=== PATIENT | female | born 1955 | race Caucasian/White ===

== ENCOUNTER → 2018-11-24 | Outpatient (CLI) | payer BC ==
--- NOTE | 2018-11-24 08:20 | CT ---
EXAMINATION TYPE: CT chest w con DATE OF EXAM: 11/24/2018 COMPARISON: NONE HISTORY: Hilar adenopathy CT DLP: 349.1 mGycm. Automated Exposure Control for Dose Reduction was Utilized. TECHNIQUE: CT scan of the thorax is performed following with IV Contrast, patient injected with 100 mL of Isovue 300. FINDINGS: LUNGS: The lungs are grossly clear, there is no concerning parenchymal mass or nodule identified. T here is no pleural effusion or pneumothorax seen. Minimal bibasilar subsegmental atelectasis is appr eciated best on the coronal images. The tracheobronchial tree is patent. MEDIASTINUM: There are no greater than 1 cm hilar or mediastinal lymph nodes. There is no evidence of hilar adenopathy. Right hilar lymph node measures 7 mm in short axis, within normal limits and a sec ond right hilar lymph node measures 8 mm, also within normal limits. No sizable left hilar adenopathy . A precarinal lymph node is upper limits of normal size measuring 1.0 cm in short axis although cont ains a morphologically normal appearing fatty hilum. No pericardial effusion is seen. Very few [place] coronary artery calcifications are seen. There is a normal variant bovine aortic arch. Aortic ro ot is upper limits of normal measuring 3.9 cm although does not meet criteria for aneurysm. Ascending thoracic aorta measures 3.8 cm, also within normal limits. OTHER: The spleen is enlarged measuring 15.3 cm in longitudinal dimension. There is mild pancreatic p arenchymal atrophy present. There is partial visualization of bilateral cystic renal lesions measurin g up to 9.3 cm the left and 3.2 cm on the right. Small hiatal hernia is present. Low-attenuation of t he hepatic parenchyma suggests mild hepatic steatosis. Minimal multilevel degenerative change of the thoracic spine is noted. IMPRESSION: 1. No evidence of hilar adenopathy or suspicious mediastinal adenopathy. No suspicious pulmonary mass or nodule. 2. Upper limits of normal size of the aortic root measuring 3.9 cm. 3. Incidentally noted splenomegaly, partially visualized cystic renal lesions measuring up to 9.3 cm on the left, and findings suggesting mild hepatic steatosis.
== END | disposition home or self-care (01) ==
LOC: RADCTMAIN 07:02
PROVIDERS: ATTEND Internal Medicine Rheumatology
DX: R59.0 Localized enlarged lymph nodes (principal)
CPT/HCPCS: 71260; Q9967

== ENCOUNTER → 2019-11-11 | Outpatient (CLI) | payer BC ==
--- NOTE | 2019-11-11 11:57 | MM ---
Reason for exam: clinical finding. Last mammogram was performed 9 years and 1 month ago. History: Patient is postmenopausal. Family history of breast cancer in sister at age 67. Took estrogen beginning at age 50. Physical Findings: Nurse did not find any significant physical abnormalities on exam. MG Diagnostic Mammo w CAD JAMAAL Bilateral CC and MLO view(s) were taken. Prior study comparison: October 09, 2010, bilateral digital screening mammogram. March 31, 2009, mammogram, performed at [facility]. There are scattered fibroglandular densities. Finding: There is a 3 mm oval mass in the right breast, two subareolar, one right upper outer quadrant. These results were verbally communicated with the patient and result sheet given to the patient on 11/11/19. ASSESSMENT: Incomplete: need additional imaging evaluation, BI-RAD 0 RECOMMENDATION: Ultrasound of the right breast.
--- NOTE | 2019-11-11 12:00 | USB ---
Reason for exam: additional evaluation requested from abnormal screening. History: Patient is postmenopausal. Family history of breast cancer in sister at age 67. Took estrogen beginning at age 50. US Breast RT Right complete breast ultrasound includes all four quadrants, the retroareolar region and axilla. Finding demonstrates three lesions too small to characterize measuring 0.3 x 0.2 x 0.3cm at 12 o'clock, 0.5 x 0.3 x 0.4cm at 1 o'clock and 0.5 x 0.4 x 0.6cm at 10 o'clock. These results were verbally communicated with the patient and result sheet given to the patient on 11/11/19. ASSESSMENT: Suspicious, BI-RAD 4 RECOMMENDATION: Ultrasound core biopsy of the right breast. Called office with mammographic findings and has scheduled an appointment for the patient for 11/12/[address] Trejo. Biopsy scheduled for 11/25/19 at 2:00. PRELIMINARY REPORT CALLED AND FAXED TO DR. TREJO ON 11/11/19.
== END | disposition home or self-care (01) ==
LOC: RADMAMWWP 07:15
PROVIDERS: ATTEND Family Medicine
DX: R92.8 Other abnormal and inconclusive findings on diagnostic imaging of breast (principal); N63.15 Unspecified lump in the right breast, overlapping quadrants
CPT/HCPCS: 77066

== ENCOUNTER → 2019-11-25 | Day surgery (SDC) | payer BC ==
[2019-11-25 13:13] VITALS: BP 150/90; PULSE 85; RESP 16; TEMP 98.6
--- NOTE | 2019-11-25 14:28 | USB ---
EXAMINATION TYPE: US discontinued breast bx RT DATE OF EXAM: 11/25/2019 COMPARISON: Right breast ultrasound dated 11/11/2019 HISTORY: Right breast mass TECHNIQUE: Targeted right breast ultrasound was performed at the 10:00 position. FINDINGS: Prescan images demonstrate a well-defined posterior wall and increased through transmission of the cystic 0.6 x 0.3 x 0.5 cm mass at the 10:00 position in zone C of the right breast. Real-time imaging was performed by both the waste minimization technician as well as myself demonstrating cystic characteristics . IMPRESSION: BI-RADS 2-benign. Precautionary standard six-month follow-up will be performed after [facility], [place] eled biopsy.
== END ==
LOC: RADUSWWP 12:53
PROVIDERS: ATTEND Family Medicine
DX: N63.10 Unspecified lump in the right breast, unspecified quadrant (principal); Z53.9 Procedure and treatment not carried out, unspecified reason

== ENCOUNTER → 2021-02-14 | Outpatient (CLI) | payer OTHER ==
--- NOTE | 2021-02-14 10:27 | MM ---
Reason for exam: additional evaluation requested from prior study. Last mammogram was performed 1 year and 3 months ago. History: Patient is postmenopausal. Family history of breast cancer in sister at age 67. US discontinued breast bx RT of the right breast, November 25, 2019. Took estrogen beginning at age 50. Physical Findings: Nurse did not find any significant physical abnormalities on exam. MG 3D Diag Mammo W/Cad JAMAAL Bilateral CC and MLO view(s) were taken. Prior study comparison: November 11, 2019, bilateral MG diagnostic mammo w CAD JAMAAL. October 09, 2010, bilateral digital screening mammogram. There are scattered fibroglandular densities. There is chronic nodularity in the right breast. There is no discrete abnormality. These results were verbally communicated with the patient and result sheet given to the patient on 02/14/21. ASSESSMENT: Benign, BI-RAD 2 RECOMMENDATION: Routine screening mammogram of both breasts in 1 year.
== END | disposition home or self-care (01) ==
LOC: RADMAMWWP 09:37
PROVIDERS: ATTEND Family Medicine
DX: N63.10 Unspecified lump in the right breast, unspecified quadrant (principal); Z80.3 Family history of malignant neoplasm of breast; Z78.0 Asymptomatic menopausal state
CPT/HCPCS: 77066; G0279; 77062

== ENCOUNTER → 2024-04-06 | Outpatient (CLI) | payer MEDICARE ==
--- NOTE | 2024-04-06 16:39 | XR ---
EXAMINATION TYPE: XR tibia fibula RT DATE OF EXAM: 04/06/2024 3:43 PM CLINICAL INDICATION:Female, 68 years old with history of R22.41 MASS AND LUMP, RIGHT LOWER LIMB; [facility] COMPARISON: None TECHNIQUE: XR tibia fibula RT; tibia/fibula was examined in AP and lateral projections. FINDINGS: No evidence of any acute osseous pathology, joint dislocation, or soft tissue swelling is n oted. IMPRESSION: 1. No evidence of acute fracture. 2. No soft tissue lump definitively visualized. Consider ultrasound.
== END | disposition home or self-care (01) ==
LOC: RADXRMAIN 15:28
PROVIDERS: ATTEND Family Medicine
DX: R22.41 Localized swelling, mass and lump, right lower limb (principal)

== ENCOUNTER → 2025-03-10 | Outpatient (CLI) | payer MEDICARE | END | disposition home or self-care (01) | LOC: RADMAMWWP 10:42 | PROVIDERS: ATTEND Family Medicine | DX: Z53.9 Procedure and treatment not carried out, unspecified reason (principal) ==